=== PATIENT | female | born 1985 | race Two or more races ===

== ENCOUNTER 2021-05-09 09:28 | Emergency (ER) | payer MEDICAID ==
[~2021-05-09] VITALS: Ht 154.9 cm; Wt 77.1 kg
[2021-05-09 09:37] VITALS: BP 131/76
--- NOTE | 2021-05-09 09:39 | NUR ---
DR SILVA AT THE BEDSIDE
--- NOTE | 2021-05-09 09:42 | NUR ---
Bibs for having burning with urine x3-4 days, yesterday +blood. +Back pain 01/05. No bladder distension noted. Abdomen soft and non-distended. Will continue to monitor the patient.
--- NOTE | 2021-05-09 09:51 | NUR ---
URINE COLLECTED AND SENT TO LAB
[2021-05-09 10:39] LABS: BILIRUBIN,URINE NEGATIVE (NEGATIVE); COLOR,URINE YELLOW (YELLOW); LEUKOCYTE ESTERASE ,URINE MODERATE (NEGATIVE); NITRITE, URINE NEGATIVE (NEGATIVE); PH,URINE 6.5 (5.0-8.0); PROTEIN,URINE 30 mg/dl (NEGATIVE); UGLUCOSE NEGATIVE (NEGATIVE); UROBILINOGEN,URINE 0.2 EU/dL (0.2)
[2021-05-09] MEDS ORDERED: CEPHALEXIN MONOHYDRATE 500 MG CAPSULE PO ONE ×2 (11:00→11:06)
[2021-05-09 11:01] LABS: BACTERIA,URINE 1+ /HPF (None Seen); RBC,URINE TOO NUMEROUS TO COUN /HPF (0-2); SQUAMOUS EPITHELIAL CELL,UR Moderate /HPF (None Seen); WBC,URINE TOO NUMEROUS TO COUN /HPF (0-3)
[2021-05-09] MEDS ORDERED: CEPH500T PO (11:11)
[2021-05-09] MEDS ORDERED: CEFTRIAXONE 1 G VIAL ONE (11:12)
[2021-05-09] MEDS ORDERED: IBUPROFEN 600 MG TABLET ONE (11:12)
[2021-05-09] MEDS ORDERED: LIDOCAINE HCL/MPF 1% 30 ML VIAL IJ ONE (11:13)
[2021-05-09] MEDS ORDERED: IBUP-1955 PO (11:13)
[2021-05-09] MEDS ORDERED: LIDOCAINE /MPF 1% VIAL 5 ML VIAL ONE (11:15)
[2021-05-09] MEDS ORDERED: CEFTRIAXONE 1 G VIAL IM ONE (11:30)
[2021-05-09] MEDS ORDERED: IBUPROFEN 600 MG TABLET PO ONE (11:30)
--- NOTE | 2021-05-09 11:36 | NUR ---
Patient discharged to home in stable condition. Written and verbal after care instructions given. Patient verbalizes understanding of instruction.
== END 2021-05-09 11:36 | disposition home or self-care (01) ==
LOC: ER 09:32
DX: N30.90 Cystitis, unspecified without hematuria (principal); M54.50 Low back pain, unspecified; Z98.890 Other specified postprocedural states
CPT/HCPCS: 81001; 84703; 87086; 96372; 99283; J0696; J3490